=== PATIENT | male | born 1960 | race American Indian/Alaskan Native ===

== ENCOUNTER 2017-08-18 20:04 | Emergency (ER) | payer OTHER ==
[2017-08-19] MEDS ORDERED: MOTRIN PO ONE (00:37)
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
[2017-08-19 01:39] VITALS: BP 134/90
== END 2017-08-19 01:10 | disposition home or self-care (01) ==
LOC: ED 20:04
DX: S70.02XA Contusion of left hip, initial encounter (principal); V49.59XA Passenger injured in collision with other motor vehicles in traffic accident, initial encounter; Y93.89 Activity, other specified; Y92.89 Other specified places as the place of occurrence of the external cause; Y99.8 Other external cause status
CPT/HCPCS: 99282